=== PATIENT | female | born 1935 | race Caucasian/White ===

== ENCOUNTER 2018-06-08 21:01 | Emergency (ER) | payer MEDICARE, OTHER ==
[2018-06-08] MEDS ORDERED: 0.9 % SODIUM CHLORIDE 1000ML 500 ML IV SCH (21:45)
--- NOTE | 2018-06-08 21:45 | Emergency Department Record ---
History of Present Illness - General Stated Complaint: UPSET STOMACH Time Seen by Provider: 06/08/18 21:35 Source: Patient Mode of Arrival: Wheelchair Limitations: No limitations - History of Present Illness Initial Comments: 82 yo female presents to ED for evaluation of "gas pain" to the abdomen diffusely after starting a new high-protein ensure diet 2 days ago. Patient denies fevers, chills, or vomiting symptoms but does report that her last BM was several days ago. Patient denies health problems at her baseline other than HTN, previous pacemaker placement. MD Complaint: Abdominal pain Onset/Timin -: Days(s) Location: Diffuse Radiation: None Migration to: No migration Severity: Moderate Quality: Cramping Consistency: Intermittent Improves With: Nothing Worsens With: Nothing Associated Symptoms: Denies other symptoms - Related Data Patient : No Allergies Allergy/AdvReac Type Severity Reaction Status Date / Time Sulfa (Sulfonamide Allergy Mild RASH Verified 06/08/18 21:50 Antibiotics) [SULFA (SULFONAMIDE ANTIBIOTICS)] amoxicillin Allergy DIZZINESS Verified 06/08/18 21:51 cephalexin monohydrate Allergy RASH Verified 06/08/18 21:50 [From Keflex] nitrofurantoin Allergy RASH Verified 06/08/18 21:50 macrocrystalline [From Macrodantin] Review of Systems Constitutional: Denies: Chills, Fever, Malaise, Night sweats Eyes: Denies: Eye discharge, Eye pain ENT: Denies: Congestion, Ear pain, Epistaxis Respiratory: Denies: Cough, Dyspnea Cardiovascular: Denies: Chest pain, Dyspnea on exertion Endocrine: Denies: Fatigue, Heat or cold intolerance Gastrointestinal: Reports: Abdominal pain, Constipation. Denies: Diarrhea, Nausea, Vomiting Genitourinary: Denies: Incontinence, Retention Musculoskeletal: Denies: Arthralgia, Back pain Skin: Denies: Bruising, Change in color Neurological: Denies: Abnormal gait, Confusion, Headache, Seizure Psychiatric: Denies: Anxiety Hematological/Lymphatic: Denies: Anemia, Blood Clots Past Medical History - SOCIAL HISTORY Smoking Status: Former smoker - RESPIRATORY Hx Respiratory Disorders: No - CARDIOVASCULAR Hx Cardio Disorders: Yes Hx Hypertension: Yes - NEURO Hx Neuro Disorders: No - GI Hx GI Disorders: No - Hx Genitourinary Disorders: No - ENDOCRINE Hx Endocrine Disorders: No - MUSCULOSKELETAL Hx Musculoskeletal Disorders: No - PSYCH Hx Psych Problems: No - HEMATOLOGY/ONCOLOGY Hx Hematology/Oncology Disorders: No Family Medical History Hx Heart Disease: Father Hx Stroke: Mother Physical Exam - General General Appearance: Alert, Oriented x3, Cooperative, Mild distress Limitations: No limitations - Head Head exam: Atraumatic, Normocephalic, Normal inspection Head exam detail: negative: Abrasion, Contusion, Schwartz's sign, General tenderness, Hematoma, Laceration - Eye Eye exam: Normal appearance. negative: Conjunctival injection, Periorbital swelling, Periorbital tenderness, Scleral icterus - ENT Ear exam: negative: Auricular hematoma, Auricular trauma Nasal Exam: negative: Active bleeding, Discharge, Dried blood, Foreign body Mouth exam: negative: Drooling, Laceration, Muffled voice, Tongue elevation - Neck Neck exam: Normal inspection. negative: Meningismus, Tenderness - Respiratory Respiratory exam: Normal lung sounds bilaterally. negative: Rales, Respiratory distress, Rhonchi, Stridor - Cardiovascular Cardiovascular Exam: Regular rate, Normal rhythm, Normal heart sounds - GI/Abdominal GI/Abdominal exam: Soft, Distended, Hyperactive bowel sounds. negative: Rebound , Rigid, Tenderness - Rectal Rectal exam: Deferred - exam: Deferred - Extremities Extremities exam: Other (Mild ecchymosis to the upper extremities bilaterally). negative: Pedal edema, Tenderness - Back Back exam: Denies: CVA tenderness (R), CVA tenderness (L) - Neurological Neurological exam: Alert, Normal gait, Oriented X3 - Psychiatric Psychiatric exam: Normal affect, Normal mood - Skin Skin exam: Normal color. negative: Abrasion Type of lesion: negative: abrasion Course Vital Signs 06/08/18 21:10 Temperature 97.4 F L Pulse Rate [ 63 Pulse Ox Probe] Respiratory 20 Rate Blood Pressure 136/67 [Left Arm] Pulse Ox 96 - Reevaluation(s) Reevaluation #1: 06/08/18 22:51 Laboratory studies were reviewed, critical labs: Na 111 Cl-74 Patient's SO reports that she was started on Lasix in April following pacemaker placement. After reviewing labs with the patient's SO, will initiate transfer to [facility] for ICU placement. Reevaluation #2: 06/08/18 23:06 Case was discussed with Dr. Jackson/Azalea, will accept the patient to the ICU for further electrolyte management. Will repeat the patient's Na level and serum osmality prior to transfer as well. Medical Decision Making - Lab Data Result diagrams: 06/08/18 22:00 06/08/18 22:00 Critical Care Time Critical Care Time: Yes Total Critical Care Time: 45 Critical Care Time: Diagnosis and initial treatment of hyponatremia, evaluation for abdominal pain symptoms, repeat laboratory studies, initiation for transfer to ICU and coordination of care with [employer]in[employer], discussions with the patient and family. Disposition Disposition: Transfer Clinical Impression: Acute hyponatremia Disposition: Acute Care Hospital Transfer Transfer To: [facility] Reason For Transfer: ICU for treatment of hyponatremia Accepting Physician: Wolf Time Discussed w/Accepting Physician: 23:08 Condition: (3) Guarded Time of Disposition: 23:08 Quality - Quality Measures Quality Measures: N/A - Blood Pressure Screening Does Patient Have Any of the Following: Active Dx of HTN Blood Pressure Classification: Pre-Hypertensive BP Reading Systolic Measurement: 123 Diastolic Measurement: 60 Screening for High Blood Pressure: Patient Exclusion, Hx of HTN [G9744]
[2018-06-08 22:08] LABS: HEMATOCRIT 36.8 % (35.0-47.0); HEMOGLOBIN 13.6 gm/dl (11.6-16.0); MEAN CELL VOLUME 78.6 fl (81-97); MEAN CORPUSCULAR HEMOGLOBIN 29.1 pg (27-33); MEAN PLATELET VOLUME 8.1 fl (7.4-10.4); PLATELET COUNT 389 K/uL (130-400); RED BLOOD COUNT 4.68 M/uL (3.80-5.40); RED CELL DISTRIBUTION WIDTH 12.9 % (11.5-14.5); WHITE BLOOD COUNT W/O DIFF 12.3 K/uL (4.2-12.2)
[2018-06-08 22:19] LABS: BLOOD UREA NITROGEN 13 mg/dL (8-23); CREATININE 0.6 mg/dL (0.5-0.9); EST GLOMERULAR FILTRATION RATE > 60 mL/min
[2018-06-08 22:20] LABS: LIPASE 186 U/L (13-60); TOTAL PROTEIN 7.2 g/dL (6.6-8.7)
[2018-06-08 22:22] LABS: GLUCOSE,RANDOM 101 mg/dL (74-109)
[2018-06-08 22:25] LABS: ALB/GLOB RATIO 1.2 (1.1-1.8); ALBUMIN 3.9 g/dL (4.0-5.0); ALKALINE PHOSPHATASE 82 U/L (35-104); ALT/SGPT 12 U/L (<33); AST/SGOT 16 U/L (10.0-35.0)
[2018-06-08 22:40] LABS: ANISOCYTOSIS 1+; MICROCYTOSIS 1+; PLATELET ESTIMATE NORMAL (NORMAL)
--- NOTE | 2018-06-11 08:01 | CT SCAN REPORT ---
EXAM: CT SCAN OF THE ABDOMEN AND PELVIS WITH CONTRAST HISTORY: UPPER ABDOMINAL PAIN WITH GAS FOR THE PAST DAY. TECHNIQUE: Standard CT imaging of the abdomen and pelvis was performed following the bolus administration of 100 ml of Omnipaque 300. Comparison: 12/06/12. FINDINGS: There is atelectasis at the lung bases bilaterally, right greater than left. Pacemaker leads are present. There are numerous scattered cysts throughout the liver. There are no visible enhancing hepatic masses. The gallbladder is surgically absent. The biliary tree is unremarkable. There is mild fat stranding surrounding the pancreas suspicious for developing acute pancreatitis. There is no associated mass or pseudocyst. There is no pancreatic hemorrhage/necrosis. There is no pancreatic ductal dilatation. The spleen and adrenal glands are normal. The kidneys and ureters are unremarkable. Atherosclerotic calcifications are present within the aorta with no aneurysm or dissection. There is no retroperitoneal lymphadenopathy. There are numerous diverticula within the sigmoid colon with no evidence for acute diverticulitis. The large and small bowel loops are otherwise unremarkable. There is no pneumoperitoneum or ascites. The urinary bladder is mildly distended. There are no focal abnormalities. There are chronic compression deformities of the L1 and L5 vertebral bodies. Degenerative changes are also present throughout the thoracolumbar spine. IMPRESSION: 1. FINDINGS CONSISTENT WITH MILD ACUTE PANCREATITIS. 2. SIGMOID DIVERTICULOSIS WITH NO EVIDENCE FOR ACUTE DIVERTICULITIS. 3. NUMEROUS HEPATIC CYSTS. 4. CHRONIC COMPRESSION DEFORMITIES OF THE L1 AND L5 VERTEBRAL BODIES. JOB NUMBER: [id number] MTDD
== END 2018-06-08 23:44 | disposition short-term general hospital (02) ==
LOC: ER 21:01
DX: E87.1 Hypo-osmolality and hyponatremia (principal); R14.1 Gas pain; I10 Essential (primary) hypertension; Z95.0 Presence of cardiac pacemaker; Z87.891 Personal history of nicotine dependence
CPT/HCPCS: 99285 ×2; 83690; 84295; 80053; 85027; 74177; Q9967; J7030

== ENCOUNTER 2018-08-21 05:54 | Emergency (ER) | payer MEDICARE, OTHER ==
[2018-08-21] MEDS ORDERED: METHYLPREDNISOLONE PF 125MG/VIAL IVP ONE (06:16)
[2018-08-21] MEDS ORDERED: IPRATROPIUM/ALBUTEROL (0.5MG/3MG) NEB INH ONE (06:21)
--- NOTE | 2018-08-21 06:26 | Emergency Department Record ---
History of Present Illness - General Chief Complaint: Shortness of breath Stated Complaint: TROUBLE BREATHING Time Seen by Provider: 08/21/18 05:58 Source: Patient Mode of Arrival: Ambulatory Limitations: No limitations - History of Present Illness Initial Comments: pt states she has had the croup ever since she was a child and she feels like she has it again. she states she was with people last weekend and caught a cold. she is hoarse and has a cough. no fever and no productivity to cough. she has a hx of polyp removal from her larynx MD Complaint: Cough, Shortness of breath Onset/Timin -: Days(s) Consistency: Constant Improves With: Nothing Worsens With: Nothing Known History Of: Other Associated Symptoms: Denies other symptoms Treatments Prior to Arrival: None - Related Data Home Medications Medication Instructions Recorded Confirmed Last Taken Carbidopa/Levodopa 25Mg/100Mg 1 tab PO DAILY 08/21/18 08/21/18 Unknown [Sinemet] Lisinopril 20 mg PO DAILY 08/21/18 08/21/18 Unknown Previous Rx's Medication Instructions Recorded Prednisone [Prednisone 20Mg] 20 mg PO DAILY #3 tab 08/21/18 Allergies Allergy/AdvReac Type Severity Reaction Status Date / Time Sulfa (Sulfonamide Allergy Mild RASH Verified 08/21/18 06:01 Antibiotics) [SULFA (SULFONAMIDE ANTIBIOTICS)] amoxicillin Allergy DIZZINESS Verified 08/21/18 06:01 cephalexin monohydrate Allergy RASH Verified 08/21/18 06:01 [From Keflex] nitrofurantoin Allergy RASH Verified 08/21/18 06:01 macrocrystalline [From Macrodantin] Travel Screening - Travel/Exposure Within Last 30 Days Have you traveled within the last 30 days?: No - Travel/Exposure Within Last Year Have you traveled outside the [place] in the last year?: No - Additonal Travel Details Have you been exposed to anyone with a communicable illness?: No - Travel Symptoms Symptom Screening: None Review of Systems Reviewed: No additional complaints except as noted below Constitutional: Reports: As per HPI. Denies: Chills, Fever, Malaise, Night sweats, Weakness, Weight change Eyes: Reports: As per HPI. Denies: Eye discharge, Eye pain, Photophobia, Vision change ENT: Reports: As per HPI. Denies: Congestion, Dental pain, Ear pain, Epistaxis, Hearing loss, Throat pain Respiratory: Reports: As per HPI, Cough, Dyspnea. Denies: Hemoptysis, Stridor, Wheezes Cardiovascular: Reports: As per HPI. Denies: Arrhythmia, Chest pain, Dyspnea on exertion, Edema, Murmurs, Orthopnea, Palpitations, Paroxysmal nocturnal dyspnea, Rheumatic Fever, Syncope Endocrine: Reports: As per HPI. Denies: Fatigue, Heat or cold intolerance, Polydipsia, Polyuria Gastrointestinal: Reports: As per HPI. Denies: Abdominal pain, Constipation, Diarrhea, Hematemesis, Hematochezia, Melena, Nausea, Vomiting Genitourinary: Reports: As per HPI. Denies: Abnormal menses, Discharge, Dyspareunia, Dysuria, Frequency, Hematuria, Incontinence, Retention, Urgency Musculoskeletal: Reports: As per HPI. Denies: Arthralgia, Back pain, Gout, Joint swelling, Myalgia, Neck pain Skin: Reports: As per HPI. Denies: Bruising, Change in color, Change in hair/nails, Lesions, Pruritus, Rash Neurological: Reports: As per HPI. Denies: Abnormal gait, Confusion, Headache, Numbness, Paresthesias, Seizure, Tingling, Tremors, Vertigo, Weakness Psychiatric: Reports: As per HPI. Denies: Anxiety, Auditory hallucinations, Depression, Homicidal thoughts, Suicidal thoughts, Visual hallucinations Hematological/Lymphatic: Reports: As per HPI. Denies: Anemia, Blood Clots, Easy bleeding, Easy bruising, Swollen glands Past Medical History - SOCIAL HISTORY Smoking Status: Former smoker Alcohol Use: None Drug Use: None - RESPIRATORY Hx Respiratory Disorders: Yes Comment:: CROUP - CARDIOVASCULAR Hx Cardio Disorders: Yes Hx Hypertension: Yes - NEURO Hx Neuro Disorders: Yes Hx Parkinson's Disease: Yes - GI Hx GI Disorders: No - Hx Genitourinary Disorders: No - ENDOCRINE Hx Endocrine Disorders: No - MUSCULOSKELETAL Hx Musculoskeletal Disorders: No - PSYCH Hx Psych Problems: No - HEMATOLOGY/ONCOLOGY Hx Hematology/Oncology Disorders: No Family Medical History Any Significant Family History?: No Hx Heart Disease: Father Hx Stroke: Mother Physical Exam - General General Appearance: Alert, Oriented x3, Cooperative, Mild distress - Head Head exam: Normal inspection - Eye Eye exam: Normal appearance, PERRL, EOMI Pupils: Normal accommodation - ENT ENT exam: Normal exam, Mucous membranes moist, Normal external ear exam, Normal orophraynx Ear exam: Normal external inspection. negative: External canal tenderness Nasal Exam: Normal inspection. negative: Discharge, Sinus tenderness Mouth exam: Normal external inspection, Tongue normal Teeth exam: Normal inspection. negative: Dental caries Throat exam: Normal inspection. negative: Tonsillar erythema, Tonsillar exudate - Neck Neck exam: Normal inspection, Full ROM. negative: Tenderness - Respiratory Respiratory exam: Normal lung sounds bilaterally, Other (hoarseness). negative: Respiratory distress - Cardiovascular Cardiovascular Exam: Normal rhythm, Normal heart sounds, Tachycardia - GI/Abdominal GI/Abdominal exam: Soft, Normal bowel sounds. negative: Tenderness - Rectal Rectal exam: Deferred - exam: Deferred - Extremities Extremities exam: Normal inspection, Full ROM, Normal capillary refill. negat jean-paul: Tenderness - Back Back exam: Reports: Normal inspection, Full ROM. Denies: Muscle spasm, Rash noted, Tenderness - Neurological Neurological exam: Alert, Normal gait, Oriented X3, Reflexes normal - Psychiatric Psychiatric exam: Normal affect, Normal mood - Skin Skin exam: Dry, Intact, Normal color, Warm Course Vital Signs 08/21/18 05:55 Temperature 97.7 F Pulse Rate 105 H Respiratory 24 Rate Blood Pressure 166/90 Pulse Ox 96 Medical Decision Making - Lab Data Result diagrams: 08/21/18 06:21 08/21/18 06:21 Disposition Disposition: Discharge Clinical Impression: URI (upper respiratory infection) Qualifiers: URI type: unspecified viral URI Qualified Code(s): J06.9 - Acute upper respiratory infection, unspecified Disposition: Home, Self-Care Condition: (1) Good Instructions: Viral Syndrome (ED), Upper Respiratory Infection (ED) Additional Instructions: follow up with family doctor. return sooner if worse. if symptoms continue have a scope. Prescriptions: Prednisone [Prednisone 20Mg] 20 mg PO DAILY #3 tab Forms: Patient Portal Access Quality - Quality Measures Quality Measures: N/A - Blood Pressure Screening Does Patient Have Any of the Following: Active Dx of HTN Blood Pressure Classification: Hypertensive Reading Systolic Measurement: 166 Diastolic Measurement: 90 Screening for High Blood Pressure: Patient Exclusion, Hx of HTN [G9744]
[2018-08-21 06:29] LABS: ABSOLUTE NEUTROPHIL COUNT 5.25; BASO % 0.4 % (0-6); HEMATOCRIT 40.5 % (35.0-47.0); HEMOGLOBIN 13.2 gm/dl (11.6-16.0); LYMPH % 19.9 % (16-45); MEAN CELL VOLUME 85.1 fl (81-97); MEAN CORPUSCULAR HEMOGLOBIN 27.7 pg (27-33); MEAN CORPUSCULAR HGB CONC 32.6 g/dl (32-36); MEAN PLATELET VOLUME 8.9 fl (7.4-10.4); MONO % 9.7 % (0-9); PLATELET COUNT 373 K/uL (130-400); RED BLOOD COUNT 4.76 M/uL (3.80-5.40); RED CELL DISTRIBUTION WIDTH 13.8 % (11.5-14.5); WHITE BLOOD COUNT W/O DIFF 7.5 K/uL (4.2-12.2)
[2018-08-21 06:37] LABS: BLOOD UREA NITROGEN 10 mg/dL (8-23); CREATININE 0.7 mg/dL (0.5-0.9); EST GLOMERULAR FILTRATION RATE > 60 mL/min
[2018-08-21 06:40] LABS: GLUCOSE,RANDOM 126 mg/dL (74-109)
--- NOTE | 2018-08-23 18:23 | RADIOLOGY REPORT ---
STUDY: Neck soft tissues 2 views. CLINICAL HISTORY: Tingling and tight sensation in throat for 1 day. Hoarseness. TECHNIQUE: AP and lateral views of the neck soft tissues are obtained. COMPARISON: Two views of the neck soft tissues dated 06/17/2015. FINDINGS: The airway appears patent and symmetric positioned near the midline. The epiglottis and aryepiglottic folds are normal. No suspicious prevertebral soft tissue swelling. There are degenerative changes scattered throughout the spine with anterior bridging marginal osteophytes at the mid and lower levels, stable. Surgical clips are noted within the neck base. IMPRESSION: 1. No suspicious neck soft tissue abnormality without significant change since 06/17/2015. 2. Degenerative changes scattered throughout the spine. MTDD
--- NOTE | 2018-08-23 18:23 | RADIOLOGY REPORT ---
STUDY: Chest 2 views. CLINICAL HISTORY: Shortness of breath. Nonproductive cough. TECHNIQUE: Upright PA and lateral views of the chest. COMPARISON: Two-view chest radiographic examination dated 06/17/2015. FINDINGS: A dual-lead transvenous cardiac pacer is now noted in place with lead tips in the right atrium and right ventricle, respectively. The heart is not enlarged and the pulmonary vasculature is nondilated. The thoracic aorta is tortuous and atherosclerotic. Moderate elevation of the right hemidiaphragm persists. There is likely associated minor compressive atelectasis in the right lung base, not significantly changed in the interval. No new lung consolidation, new costophrenic angle blunting, or pneumothorax. There are degenerative changes scattered throughout the visualized spine and shoulder girdles. IMPRESSION: 1. Moderate elevation of the right hemidiaphragm re-demonstrated associated with minimal compressive atelectasis with the right lung base. 2. No definite evidence of an acute intrathoracic process. 3. Dual-lead transvenous cardiac pacer in place. [facility]
== END 2018-08-21 07:03 | disposition home or self-care (01) ==
LOC: ER 05:54
DX: J06.9 Acute upper respiratory infection, unspecified (principal); R06.02 Shortness of breath; I10 Essential (primary) hypertension; Z87.891 Personal history of nicotine dependence
CPT/HCPCS: 70360; 71046; 80048; 85025; 94640; 96374; 99284; J2930

== ENCOUNTER 2018-09-12 20:55 | Emergency (ER) | payer MEDICARE, OTHER ==
[2018-09-12 21:13] LABS: URINE APPEARANCE CLEAR; URINE BILIRUBIN NEGATIVE (NEGATIVE); URINE BLOOD SMALL (NEGATIVE); URINE COLOR YELLOW; URINE GLUCOSE (UA) NEGATIVE (NEGATIVE); URINE KETONE NEGATIVE (NEGATIVE); URINE LEUKOCYTE ESTERASE MODERATE (NEGATIVE); URINE NITRITE NEGATIVE (NEGATIVE); URINE PROTEIN TRACE (NEGATIVE); URINE UROBILINOGEN 0.2 E.U./dL (0.20 - 1.00)
[2018-09-12 21:19] LABS: URINE BACTERIA FEW; URINE EPITHELIAL CELLS 0 - 2 (FEW)
--- NOTE | 2018-09-12 21:22 | Emergency Department Record ---
History of Present Illness - General Chief complaint: Female Urogenital Problem Stated complaint: BLADDER INFECTION Time Seen by Provider: 09/12/18 20:56 Source: Patient Mode of Arrival: Ambulatory Limitations: No limitations - History of Present Illness Initial comments: 83 yo female presents to ED for evaluation of burning with urination, urianry frequency that began this evening. Patient reports similar symptoms with previous urinary tact infections. Patient denies fevers, chills, flank pain, abdominal pain, or recent illness. Patient denies health problems other than a "fast pulse" s/p pacemaker placement. MD Complaint: Dysuria Onset/Timin -: Hour(s) Radiation: Non-radiating Severity: Moderate Quality: Burning Consistency: Intermittent Improves with: None Worsens with: Urination Patient : No Associated Symptoms: Denies other symptoms - Related Data Previous Rx's Medication Instructions Recorded Nitrofurantoin Monohyd/M-Cryst 100 mg PO BID #14 capsule 09/12/18 [Macrobid 100 mg Capsule] Allergies Allergy/AdvReac Type Severity Reaction Status Date / Time Sulfa (Sulfonamide Allergy Mild RASH Verified 08/21/18 06:01 Antibiotics) [SULFA (SULFONAMIDE ANTIBIOTICS)] amoxicillin Allergy DIZZINESS Verified 08/21/18 06:01 cephalexin monohydrate Allergy RASH Verified 08/21/18 06:01 [From Keflex] nitrofurantoin Allergy RASH Verified 08/21/18 06:01 macrocrystalline [From Macrodantin] Travel Screening - Travel/Exposure Within Last 30 Days Have you traveled within the last 30 days?: No - Travel/Exposure Within Last Year Have you traveled outside the [place] in the last year?: No - Additonal Travel Details Have you been exposed to anyone with a communicable illness?: No Review of Systems Constitutional: Denies: Chills, Fever, Malaise, Night sweats Eyes: Denies: Eye discharge, Eye pain ENT: Denies: Congestion, Ear pain, Epistaxis Respiratory: Denies: Cough, Dyspnea Cardiovascular: Denies: Chest pain, Dyspnea on exertion Endocrine: Denies: Fatigue, Heat or cold intolerance Gastrointestinal: Denies: Abdominal pain, Constipation, Nausea, Vomiting Genitourinary: Reports: Dysuria. Denies: Incontinence, Retention Musculoskeletal: Denies: Arthralgia, Back pain Skin: Denies: Bruising, Change in color Neurological: Denies: Abnormal gait, Confusion Psychiatric: Denies: Anxiety Hematological/Lymphatic: Denies: Anemia, Blood Clots Past Medical History - SOCIAL HISTORY Smoking Status: Former smoker Alcohol Use: None Drug Use: None - RESPIRATORY Hx Respiratory Disorders: Yes Comment:: CROUP - CARDIOVASCULAR Hx Cardio Disorders: Yes Hx Hypertension: Yes Hx Pacemaker/Defib: Yes - NEURO Hx Neuro Disorders: Yes Hx Parkinson's Disease: Yes - GI Hx GI Disorders: No - Hx Genitourinary Disorders: Yes Hx Bladder Problem: Yes (frequent UTI) - ENDOCRINE Hx Endocrine Disorders: No Hx Diabetes: No - MUSCULOSKELETAL Hx Musculoskeletal Disorders: No - PSYCH Hx Psych Problems: No - HEMATOLOGY/ONCOLOGY Hx Hematology/Oncology Disorders: No Family Medical History Any Significant Family History?: Yes Hx Heart Disease: Father Hx Stroke: Mother Physical Exam - General General Appearance: Alert, Oriented x3, Cooperative, No acute distress Limitations: No limitations - Head Head exam: Atraumatic, Normocephalic, Normal inspection Head exam detail: negative: Abrasion, Contusion, Schwartz's sign, General tenderness, Hematoma, Laceration - Eye Eye exam: Normal appearance. negative: Conjunctival injection, Periorbital swelling, Periorbital tenderness, Scleral icterus - ENT Ear exam: negative: Auricular hematoma, Auricular trauma Nasal Exam: negative: Active bleeding, Discharge, Dried blood, Foreign body Mouth exam: negative: Drooling, Laceration, Muffled voice, Tongue elevation - Neck Neck exam: Normal inspection. negative: Meningismus, Tenderness - Respiratory Respiratory exam: Normal lung sounds bilaterally. negative: Rales, Respiratory distress, Rhonchi, Stridor - Cardiovascular Cardiovascular Exam: Normal rhythm, Normal heart sounds, Tachycardia - GI/Abdominal GI/Abdominal exam: Soft. negative: Rebound, Rigid, Tenderness - Rectal Rectal exam: Deferred - exam: Deferred - Extremities Extremities exam: Full ROM. negative: Calf tenderness - Back Back exam: Denies: CVA tenderness (R), CVA tenderness (L) - Neurological Neurological exam: Alert, Normal gait, Oriented X3 - Psychiatric Psychiatric exam: Normal affect, Normal mood - Skin Skin exam: Normal color. negative: Abrasion Type of lesion: negative: abrasion Course Vital Signs 09/12/18 21:00 Temperature 97.3 F L Pulse Rate 100 H Respiratory 12 Rate Blood Pressure 147/92 Pulse Ox 91 L - Reevaluation(s) Reevaluation #1: 09/12/18 21:23 UA reviewed: RBCs: 7-10 WBCs: 10-15 Bacteria: Few Patient was updated on her result, requesting IM injection due to difficulty with oral pills. Rocephin ordered to be given IM. Patient also reports that her pulse "never gets below 85", deneis chest discomfort or difficulty in breathing. Patient appears stable for discharge at this time. Medical Decision Making - Lab Data Lab Results 09/12/18 Range/Units 21:14 Urine Color Yellow Urine Appearance Clear Urine pH 6.0 (5.0-8.0) Ur Specific [place] 1.010 (1.002-1.030) Urine Protein Trace H (NEGATIVE) Urine Glucose (UA) Negative (NEGATIVE) Urine Ketones Negative (NEGATIVE) Urine Blood Small H (NEGATIVE) Urine Nitrite Negative (NEGATIVE) Urine Bilirubin Negative (NEGATIVE) Urine Urobilinogen 0.2 (0.20 - 1.00) E.U./dL Ur Leukocyte Esterase Moderate H (NEGATIVE) Disposition Disposition: Discharge Clinical Impression: Dysuria Disposition: Home, Self-Care Condition: (2) Stable Instructions: Urinary Tract Infection in Women (ED) Additional Instructions: Return to ED if your symptoms worsen or if you have any concerns. Macrobid as directed. Follow-up with your family doctor in 3-5 days as directed. Prescriptions: Nitrofurantoin Monohyd/M-Cryst [Macrobid 100 mg Capsule] 100 mg PO BID #14 capsule Forms: Patient Portal Access Time of Disposition: 21:27 Quality - Quality Measures Quality Measures: N/A - Blood Pressure Screening Does Patient Have Any of the Following: No Blood Pressure Classification: Hypertensive Reading Systolic Measurement: 147 Diastolic Measurement: 92 Screening for High Blood Pressure: < First Hypertensive BP, F/U Documented > [G8950] First Hypertensive Follow-up Interventions: Referral to alternative/primary care provider.
[2018-09-12] MEDS ORDERED: CEFTRIAXONE 1GM/50ML BAG 1 GM/50 ML BAG IVPB ONE (21:27)
== END 2018-09-12 22:11 | disposition home or self-care (01) ==
LOC: ER 20:55
DX: R30.0 Dysuria (principal); I10 Essential (primary) hypertension; Z95.0 Presence of cardiac pacemaker; Z87.891 Personal history of nicotine dependence
CPT/HCPCS: 99284 ×2; 96365; 81001; J0696

== ENCOUNTER 2018-11-16 12:59 | Emergency (ER) | payer MEDICARE, OTHER ==
--- NOTE | 2018-11-16 13:15 | Emergency Department Record ---
History of Present Illness - General Chief complaint: Weakness Stated complaint: WEAK, ARMS NUMB/ABD DISCOMFORT Time Seen by Provider: 11/16/18 13:12 Source: Patient, Family Mode of Arrival: Wheelchair Limitations: No limitations - History of Present Illness Initial comments: 83 yo female states she has felt weak for the last 2 hours since about 11:30. She denies and chest pain or short of breath. She felt like her arms were weak and she was tired. No cough. No fever. No nausea or vomiting. She has a vague discomfort in the abdomen that is "not painful" or sore to touch. In April she had a pacemaker placed. She reports in June she was admitted for low sodium. She denies any other recent abrupt changes in her health. [facility] is her cardiology provided. MD Complaint: Generalized weakness Onset/Timin -: Hour(s) Location: Generalized Severity: Mild Consistency: Constant Improves with: None Worsens with: None Associated Symptoms: Denies other symptoms - [place] Coma Scale Eye Response: (4) Open spontaneously Motor Response: (6) Obeys commands Verbal Response: (5) Oriented [place] Total: 15 - Related Data Previous Rx's Medication Instructions Recorded Nitrofurantoin Monohyd/M-Cryst 100 mg PO BID #14 capsule 11/16/18 [Macrobid 100 mg Capsule] Allergies Allergy/AdvReac Type Severity Reaction Status Date / Time Sulfa (Sulfonamide Allergy Mild RASH Verified 08/21/18 06:01 Antibiotics) [SULFA (SULFONAMIDE ANTIBIOTICS)] amoxicillin Allergy DIZZINESS Verified 08/21/18 06:01 cephalexin monohydrate Allergy RASH Verified 08/21/18 06:01 [From Keflex] nitrofurantoin Allergy RASH Verified 08/21/18 06:01 macrocrystalline [From Macrodantin] Travel Screening - Travel/Exposure Within Last 30 Days Have you traveled within the last 30 days?: No Review of Systems Constitutional: Reports: Weakness. Denies: Chills, Fever, Malaise Eyes: Denies: Eye discharge ENT: Denies: Congestion, Throat pain Respiratory: Denies: Cough, Dyspnea, Hemoptysis, Stridor, Wheezes Cardiovascular: Denies: Chest pain, Dyspnea on exertion, Palpitations, Syncope Endocrine: Denies: Fatigue, Polydipsia, Polyuria Gastrointestinal: Reports: As per HPI, Abdominal pain. Denies: Diarrhea, Nausea, Vomiting Genitourinary: Denies: Dysuria, Urgency Musculoskeletal: Denies: Arthralgia, Back pain, Joint swelling, Myalgia Skin: Denies: Bruising, Change in color, Rash Neurological: Reports: Weakness. Denies: Headache, Numbness Psychiatric: Denies: Anxiety Hematological/Lymphatic: Denies: Easy bleeding, Easy bruising Past Medical History - SOCIAL HISTORY Smoking Status: Former smoker - RESPIRATORY Hx Respiratory Disorders: Yes Comment:: CROUP - CARDIOVASCULAR Hx Cardio Disorders: Yes Hx Hypertension: Yes Hx Pacemaker/Defib: Yes (bradycardia) - NEURO Hx Neuro Disorders: Yes Hx Parkinson's Disease: Yes - GI Hx GI Disorders: No - Hx Genitourinary Disorders: Yes Hx Bladder Problem: Yes (frequent UTI) - ENDOCRINE Hx Endocrine Disorders: No Hx Diabetes: No - MUSCULOSKELETAL Hx Musculoskeletal Disorders: No - PSYCH Hx Psych Problems: No - HEMATOLOGY/ONCOLOGY Hx Hematology/Oncology Disorders: No Family Medical History Any Significant Family History?: Yes Hx Heart Disease: Father Hx Stroke: Mother Physical Exam - General General Appearance: Alert, Oriented x3, Cooperative, No acute distress Limitations: No limitations - Head Head exam: Atraumatic, Normal inspection - Eye Eye exam: Normal appearance, PERRL. negative: Conjunctival injection, Scleral icterus - ENT ENT exam: Normal exam, Mucous membranes moist Ear exam: Normal external inspection Nasal Exam: Normal inspection Mouth exam: Normal external inspection - Neck Neck exam: Normal inspection - Respiratory Respiratory exam: Normal lung sounds bilaterally. negative: Respiratory distress - Cardiovascular Cardiovascular Exam: Tachycardia (HR about 100-105) - GI/Abdominal GI/Abdominal exam: Soft, Normal bowel sounds. negative: Distended, Guarding, Tenderness - Rectal Rectal exam: Deferred - exam: Deferred - Extremities Extremities exam: negative: Calf tenderness, Pedal edema, Tenderness - Back Back exam: Denies: CVA tenderness (R), CVA tenderness (L) - Neurological Neurological exam: Alert, Oriented X3 - Psychiatric Psychiatric exam: Normal affect, Normal mood. negative: Agitated, Anxious - Skin Skin exam: Dry, Intact, Normal color, Warm Course Vital Signs 11/16/18 13:07 Temperature 97.8 F Pulse Rate 106 H Respiratory 18 Rate Blood Pressure 179/107 Pulse Ox 97 - Reevaluation(s) Reevaluation #1: 11/16/18 13:14 EKG #1: 13:03 Rate: 102 Rhythm: paced rhythm [employer]: L Intervals: paced ST segments: paced Prior: No changes from 06/17/15 11/16/18 14:09 No acute changes on the CBC HR 83 currently and relaxed 11/16/18 14:10 11/16/18 14:19 The CMP is normal The troponin is normal She continues to be at her baseline and feels fine I do not have any obvious cause for her transiently feeling weak all over I recommend a period of observation and recheck. 11/16/18 15:44 The patient ate lunch and is still feeling normal. She states her appetite is normal She is now able to provide a UA. 11/16/18 16:28 The UA is consistent with possible UTI. She states she is unable to take oral antibiotics. Rocephin was given last ED visit in September. 11/16/18 17:40 The patient continues to be asymptomatic. Rocephin given waiting for repeat troponin. She states she feels comfortable with DC home. 11/16/18 18:14 Repeat troponin is negative DC home with instructions for close follow up with her PCP We discussed returning to the ED if any symptoms return Medical Decision Making - Lab Data Result diagrams: 11/16/18 13:15 11/16/18 13:15 Disposition Disposition: Discharge Clinical Impression: Weakness, Urinary tract infection Disposition: Home, Self-Care Condition: (1) Good Instructions: Weakness (ED) Additional Instructions: Review this ER visit and the tests performed with your family doctor Call your doctor for the next available follow up appointment Return to the ER for a recheck if worse, any new concerns or questions Take the prescriptions provided as directed Prescriptions: Nitrofurantoin Monohyd/M-Cryst [Macrobid 100 mg Capsule] 100 mg PO BID #14 capsule Forms: Patient Portal Access Quality - Quality Measures Quality Measures: N/A - Blood Pressure Screening Does Patient Have Any of the Following: Active Dx of HTN Blood Pressure Classification: Hypertensive Reading Systolic Measurement: 179 Diastolic Measurement: 107 Screening for High Blood Pressure: Patient Exclusion, Hx of HTN [G9744] Pre-Hypertensive Follow-up Interventions: Referral to alternative/primary care provider.
[2018-11-16 13:54] LABS: BASO % 0.4 % (0-6); GRAN % 64.3 % (47-80); HEMATOCRIT 42.1 % (35.0-47.0); HEMOGLOBIN 13.8 gm/dl (11.6-16.0); LYMPH % 28.4 % (16-45); MEAN CELL VOLUME 81.6 fl (81-97); MEAN CORPUSCULAR HEMOGLOBIN 26.7 pg (27-33); MEAN CORPUSCULAR HGB CONC 32.8 g/dl (32-36); MEAN PLATELET VOLUME 9.1 fl (7.4-10.4); MONO % 6.9 % (0-9); PLATELET COUNT 428 K/uL (130-400); RED BLOOD COUNT 5.16 M/uL (3.80-5.40); RED CELL DISTRIBUTION WIDTH 15.7 % (11.5-14.5); WHITE BLOOD COUNT W/O DIFF 8.1 K/uL (4.2-12.2)
[2018-11-16 14:06] LABS: PROTHROMBIN TIME (PATIENT) 10.5 SECONDS (9.5-12.1)
[2018-11-16 14:07] LABS: BLOOD UREA NITROGEN 12 mg/dL (8-23); CREATININE 0.7 mg/dL (0.5-0.9); EST GLOMERULAR FILTRATION RATE > 60 mL/min
[2018-11-16 14:08] LABS: TOTAL PROTEIN 7.9 g/dL (6.6-8.7)
[2018-11-16 14:09] LABS: GLUCOSE,RANDOM 130 mg/dL (74-109)
[2018-11-16 14:12] LABS: ALB/GLOB RATIO 1.4 (1.1-1.8); ALBUMIN 4.6 g/dL (4.0-5.0); ALKALINE PHOSPHATASE 91 U/L (35-104); ALT/SGPT 9 U/L (<33); AST/SGOT 17 U/L (10.0-35.0)
[2018-11-16 16:09] LABS: URINE APPEARANCE CLEAR; URINE BILIRUBIN NEGATIVE (NEGATIVE); URINE BLOOD NEGATIVE (NEGATIVE); URINE COLOR YELLOW; URINE GLUCOSE (UA) NEGATIVE (NEGATIVE); URINE KETONE TRACE (NEGATIVE); URINE LEUKOCYTE ESTERASE LARGE (NEGATIVE); URINE NITRITE NEGATIVE (NEGATIVE); URINE PROTEIN NEGATIVE (NEGATIVE); URINE UROBILINOGEN 0.2 E.U./dL (0.20 - 1.00)
[2018-11-16 16:16] LABS: URINE EPITHELIAL CELLS 0 - 2 (FEW); URINE RBC NONE SEEN (NONE SEEN)
[2018-11-16 16:17] LABS: URINE BACTERIA NONE SEEN
[2018-11-16] MEDS ORDERED: CEFTRIAXONE 1GM/50ML BAG 1 GM/50 ML BAG IVPB ONE (16:28)
== END 2018-11-16 18:33 | disposition home or self-care (01) ==
LOC: ER 12:59
DX: R53.1 Weakness (principal); N39.0 Urinary tract infection, site not specified; R20.0 Anesthesia of skin; I10 Essential (primary) hypertension; Z95.0 Presence of cardiac pacemaker; Z87.891 Personal history of nicotine dependence
CPT/HCPCS: 80053; 81001; 84484; 85025; 85610; 85730; 93005; 93010; 96365; 99284; J0696

== ENCOUNTER 2019-02-17 19:42 | Emergency (ER) | payer MEDICARE, OTHER ==
[2019-02-17] MEDS ORDERED: CEFTRIAXONE 1GM/50ML BAG 1 GM/50 ML BAG IVPB ONE (20:07)
[2019-02-17 20:09] LABS: URINE APPEARANCE CLEAR; URINE BILIRUBIN NEGATIVE (NEGATIVE); URINE BLOOD NEGATIVE (NEGATIVE); URINE COLOR YELLOW; URINE GLUCOSE (UA) NEGATIVE (NEGATIVE); URINE KETONE NEGATIVE (NEGATIVE); URINE LEUKOCYTE ESTERASE TRACE (NEGATIVE); URINE NITRITE NEGATIVE (NEGATIVE); URINE PROTEIN NEGATIVE (NEGATIVE); URINE UROBILINOGEN 0.2 E.U./dL (0.20 - 1.00)
--- NOTE | 2019-02-17 20:10 | Emergency Department Record ---
History of Present Illness - General Chief complaint: Female Urogenital Problem Stated complaint: FREQ URINATION,DISCOMFORT Time Seen by Provider: 02/17/19 19:45 Source: Patient Mode of Arrival: Ambulatory Limitations: No limitations - History of Present Illness Initial comments: 83 yo female presents to ED for evaluation of urinary frequency symtpoms that began last evening. Patient reports a history of similar symptoms related to previous UTIs, reports that she came to the ED for IV antibiotics due to her numerous allergies to oral antibiotics. Patient denies fevers, chills, abdominal pain, nausea, or vomiting symptoms. MD Complaint: Dysuria Onset/Timin -: Days(s) Location: Suprapubic Severity: Mild Severity scale (1-10): 2 Quality: Aching Consistency: Constant Improves with: None Worsens with: None Patient : No Associated Symptoms: Denies other symptoms - Related Data Sexually active: No Home Medications Medication Instructions Recorded Confirmed Last Taken Omeprazole [Prilosec] 20 mg PO DAILY 02/17/19 02/17/19 02/17/19 Previous Rx's Medication Instructions Recorded Nitrofurantoin Monohyd/M-Cryst 100 mg PO BID #14 capsule 11/16/18 [Macrobid 100 mg Capsule] Allergies Allergy/AdvReac Type Severity Reaction Status Date / Time Sulfa (Sulfonamide Allergy Mild RASH Verified 02/17/19 19:52 Antibiotics) [SULFA (SULFONAMIDE ANTIBIOTICS)] amoxicillin Allergy DIZZINESS Verified 02/17/19 19:52 cephalexin monohydrate Allergy RASH Verified 02/17/19 19:52 [From Keflex] nitrofurantoin Allergy RASH Verified 02/17/19 19:52 macrocrystalline [From Macrodantin] Travel Screening - Travel/Exposure Within Last 30 Days Have you traveled within the last 30 days?: No - Travel/Exposure Within Last Year Have you traveled outside the [place] in the last year?: No - Additonal Travel Details Have you been exposed to anyone with a communicable illness?: No - Travel Symptoms Symptom Screening: None Review of Systems Constitutional: Denies: Chills, Fever, Malaise, Night sweats Eyes: Denies: Eye discharge, Eye pain ENT: Denies: Congestion, Ear pain Respiratory: Denies: Cough, Dyspnea Cardiovascular: Denies: Chest pain, Dyspnea on exertion Endocrine: Denies: Fatigue, Heat or cold intolerance Gastrointestinal: Denies: Abdominal pain, Nausea, Vomiting Genitourinary: Reports: Dysuria. Denies: Incontinence, Retention Musculoskeletal: Denies: Arthralgia, Back pain Skin: Denies: Bruising, Change in color Neurological: Denies: Abnormal gait, Confusion, Seizure Psychiatric: Denies: Anxiety Hematological/Lymphatic: Denies: Anemia, Blood Clots Past Medical History - SOCIAL HISTORY Smoking Status: Former smoker Alcohol Use: None Drug Use: None - RESPIRATORY Hx Respiratory Disorders: Yes Comment:: CROUP - CARDIOVASCULAR Hx Cardio Disorders: Yes Hx Hypertension: Yes Hx Pacemaker/Defib: Yes (bradycardia) - NEURO Hx Neuro Disorders: Yes Hx Parkinson's Disease: Yes - GI Hx GI Disorders: No - Hx Genitourinary Disorders: Yes Hx Bladder Problem: Yes (frequent UTI) - ENDOCRINE Hx Endocrine Disorders: No Hx Diabetes: No - MUSCULOSKELETAL Hx Musculoskeletal Disorders: No - PSYCH Hx Psych Problems: No - HEMATOLOGY/ONCOLOGY Hx Hematology/Oncology Disorders: No Family Medical History Any Significant Family History?: Yes Hx Heart Disease: Father Hx Stroke: Mother Physical Exam - General General Appearance: Alert, Oriented x3, Cooperative, No acute distress Limitations: No limitations - Head Head exam: Atraumatic, Normocephalic, Normal inspection Head exam detail: negative: Abrasion, Contusion, Schwartz's sign, General tenderness, Hematoma, Laceration - Eye Eye exam: Normal appearance. negative: Conjunctival injection, Periorbital swelling, Periorbital tenderness, Scleral icterus - ENT Ear exam: negative: Auricular hematoma, Auricular trauma Nasal Exam: negative: Active bleeding, Discharge, Dried blood, Foreign body Mouth exam: negative: Drooling, Laceration, Muffled voice, Tongue elevation - Neck Neck exam: Normal inspection. negative: Meningismus, Tenderness - Respiratory Respiratory exam: Normal lung sounds bilaterally. negative: Rales, Respiratory distress, Rhonchi, Stridor - Cardiovascular Cardiovascular Exam: Regular rate, Normal rhythm, Normal heart sounds - GI/Abdominal GI/Abdominal exam: Soft. negative: Rebound, Rigid, Tenderness - Rectal Rectal exam: Deferred - exam: Deferred - Extremities Extremities exam: Normal inspection. negative: Pedal edema, Tenderness - Back Back exam: Denies: CVA tenderness (R), CVA tenderness (L) - Neurological Neurological exam: Alert, Normal gait, Oriented X3 - Psychiatric Psychiatric exam: Normal affect, Normal mood - Skin Skin exam: Normal color. negative: Abrasion Type of lesion: negative: abrasion Course Vital Signs 02/17/19 19:45 Temperature 97.4 F L Pulse Rate 119 H Respiratory 18 Rate Blood Pressure 152/92 Pulse Ox 97 - Reevaluation(s) Reevaluation #1: 02/17/19 20:35 UA was reviewed: RBCs: None WBCs: 0-2 Epithelial cells: 0-2 Bacteria: None Patient was updated on all results, no evidence for infection on examination. Patient reports that she did start an antibiotic at home prior to arrival. Patient appears stable for discharge at this time with instructions to return for any worsening of her symptoms. Disposition Disposition: Discharge Clinical Impression: Dysuria Disposition: Home, Self-Care Condition: (2) Stable Instructions: Dysuria (ED) Additional Instructions: Return to ED if your symptoms worsen or if you have any concerns. Follow-up with your family doctor in 3-5 days as directed. Forms: Patient Portal Access Time of Disposition: 20:40 Quality - Quality Measures Quality Measures: N/A - Blood Pressure Screening Does Patient Have Any of the Following: No Blood Pressure Classification: Hypertensive Reading Systolic Measurement: 154 Diastolic Measurement: 75 Screening for High Blood Pressure: < First Hypertensive BP, F/U Documented > [G8950] First Hypertensive Follow-up Interventions: Referral to alternative/primary care provider.
[2019-02-17 20:19] LABS: URINE BACTERIA NONE SEEN; URINE EPITHELIAL CELLS 0 - 2 (FEW); URINE RBC NONE SEEN (NONE SEEN); URINE WBC 0 - 2 (0-2/hpf)
== END 2019-02-17 20:52 | disposition home or self-care (01) ==
LOC: ER 19:42
DX: R30.0 Dysuria (principal); I10 Essential (primary) hypertension; Z87.891 Personal history of nicotine dependence
CPT/HCPCS: 99284 ×2; 96374; 81001; J0696